=== PATIENT | female | born 1965 | race Caucasian/White ===

== ENCOUNTER 2017-07-12 14:26 | Emergency (ER) | payer OTHER ==
[~2017-07-12] VITALS: Ht 165.1 cm; Wt 87.0 kg
[~2017-07-12 14:26] MED LIST: Z.0.NO CURRENT MEDS
--- NOTE | 2017-07-12 14:39 | PD ---
HPI Chief Complaint: tachycardia Time Seen by Provider: 14:39 Travel History International Travel<30 days: No Contact w/Intl Traveler<30days: No Traveled to known affect area: No History of Present Illness HPI 51-year-old female came to the emergency room with history of sudden onset palpitation while she was cooking this afternoon. When EMS arrived patient was found to be in SVT with heart rate of about 200. She was was given 6 mg of adenosine and converted. Currently she says she just feels shook up. She had something similar 2 years ago exactly this month. No history of chest pain. Patient says she drank a glass of wine last night. She is not a smoker and does not use any illicit drugs. She's never been on medications. She does not have a primary care physician. She was slightly tachycardic in triage. Patient did not have a syncopal episode. [facility] Past Medical History Narrative Medical List of her past medical, surgical, social and family history is reviewed from the nursing note. Diminished Hearing: No Social History Alcohol Use: Yes Tobacco Use: No Substance Use: No Allergies-Medications (Allergen,Severity, Reaction): Coded Allergies: No Known Allergies (Verified , 06/17/09) Comments No known drug allergies. Reported Meds & Prescriptions Reported Meds & Active Scripts Active Lopressor (Metoprolol Tartrate) 50 Mg Tab 25 Mg PO BID Narrative Medication List of her home medications reviewed from the nursing note. Review of Systems Except as stated in HPI: all other systems reviewed are Neg Cardiovascular: Positive: Palpitations Physical Exam Narrative GENERAL: Awake, alert, anxious, no obvious distress SKIN: Focused skin assessment warm/dry. HEAD: Atraumatic. Normocephalic. EYES: Pupils equal and round. No scleral icterus. No injection or drainage. ENT: No nasal bleeding or discharge. Mucous membranes pink and moist. NECK: Trachea midline. No JVD. CARDIOVASCULAR: Regular rate and rhythm. No murmur appreciated. RESPIRATORY: No accessory muscle use. Clear to auscultation. Breath sounds equal bilaterally. GASTROINTESTINAL: Abdomen soft, non-tender, nondistended. Hepatic and splenic margins not palpable. MUSCULOSKELETAL: No obvious deformities. No clubbing. No cyanosis. No edema. NEUROLOGICAL: Awake and alert. No obvious cranial nerve deficits. Motor grossly within normal limits. Normal speech. PSYCHIATRIC: Appropriate mood and affect; insight and judgment normal. Data Data Last Documented VS Vital Signs Date Time Temp Pulse Resp B/P (MAP) Pulse Ox O2 Delivery O2 Flow Rate FiO2 07/12/17 16:06 07/12/17 15:12 104 16 99 Nasal Cannula 2.00 07/12/17 14:43 98.2 Orders Orders Electrocardiogram (07/12/17 14:50) Basic Metabolic Panel (Bmp) (07/12/17 14:50) Complete Blood Count With Diff (07/12/17 14:50) Magnesium (Mg) (07/12/17 14:50) Troponin I (07/12/17 14:50) Chest, Single Ap (07/12/17 14:50) Ecg Monitoring (07/12/17 14:50) Bilateral Bp Monitoring (07/12/17 14:50) Iv Access Insert/Monitor (07/12/17 14:50) Oximetry (07/12/17 14:50) Oxygen Administration (07/12/17 14:50) Sodium Chloride 0.9% Flush (Ns Flush) (07/12/17 15:00) Thyroid Stimulating Hormone (07/12/17 14:50) Metoprolol Tartrate (Lopressor) (07/12/17 15:00) Ed Discharge Order (07/12/17 16:00) Labs Laboratory Tests Test 07/12/17 15:00 White Blood Count 11.4 TH/MM3 Red Blood Count 4.06 MIL/MM3 Hemoglobin 13.6 GM/DL Hematocrit 40.1 % Mean Corpuscular Volume 98.9 FL Mean Corpuscular Hemoglobin 33.6 PG Mean Corpuscular Hemoglobin Concent 34.0 % Red Cell Distribution Width 12.7 % Platelet Count 276 TH/MM3 Mean Platelet Volume 8.3 FL Neutrophils (%) (Auto) 82.8 % Lymphocytes (%) (Auto) 9.8 % Monocytes (%) (Auto) 5.4 % Eosinophils (%) (Auto) 1.4 % Basophils (%) (Auto) 0.6 % Neutrophils # (Auto) 9.4 TH/MM3 Lymphocytes # (Auto) 1.1 TH/MM3 Monocytes # (Auto) 0.6 TH/MM3 Eosinophils # (Auto) 0.2 TH/MM3 Basophils # (Auto) 0.1 TH/MM3 CBC Comment DIFF FINAL Differential Comment Blood Urea Nitrogen 19 MG/DL Creatinine 0.81 MG/DL Random Glucose 91 MG/DL Calcium Level 8.3 MG/DL Magnesium Level 2.1 MG/DL Sodium Level 140 MEQ/L Potassium Level 3.9 MEQ/L Chloride Level 110 MEQ/L Carbon Dioxide Level 20.3 MEQ/L Anion Gap 10 MEQ/L Estimat Glomerular Filtration Rate 75 ML/MIN Troponin I LESS THAN 0.02 NG/ML Thyroid Stimulating Hormone 3rd Gen 1.150 uIU/ML MDM Medical Decision Making Medical Screen Exam Complete: Yes Emergency Medical Condition: Yes Medical Record Reviewed: Yes Interpretation(s) Twelve-lead EKG was reviewed by me. Normal sinus rhythm, normal axis, tachycardia, nonspecific ST-T wave changes. Heart rate of 105 bpm. Differential Diagnosis SVT, electrolyte abnormality, hyperthyroidism Narrative Course 3:30 PM awaiting for the blood test results to come back. I've given her 25 mg of by mouth Lopressor. 3:58 PM all the test results were back in within acceptable limits. I will discharge her home. Procedures EKG Prior to Arrival: Yes Diagnosis Primary Impression: SVT (supraventricular tachycardia) Referrals: Primary Care Physician 2 days Additional Instructions: Please find a primary care who can refer you to a neurological surgery teacher to get further tests done. Take the medication as per the prescription direction. Do not drink alcohol, caffeinated Beverages or Coffee, smokes cigarettes or any illicit drugs that can increase your heart rate and blood pressure. Return to the ER if the condition worsens or any other new concerns. Med/Other Pt SpecificInfo: Prescription(s) given Scripts Metoprolol Tartrate (Lopressor) 50 Mg Tab 25 MG PO BID, #60 TAB 0 Refills Prov: Brittany Owens MD 07/12/17 Disposition: 01 DISCHARGE HOME Condition: Stable Brittany Owens MD Jul 12, 2017 14:39
[2017-07-12 14:43] VITALS: BP 164/75; PULSE 107; RESP 16; TEMP 98.2; O2SAT 98
[2017-07-12] MEDS ORDERED: METOPROLOL TARTRATE 25 MG TAB PO ONE (15:00)
[2017-07-12] MEDS ORDERED: SODIUM CHLORIDE 0.9% FLUSH 10 ML FLUSH IVF PRN (15:00)
[2017-07-12 15:03] VITALS: RESP 16; O2SAT 98
[2017-07-12 15:12] VITALS: BP_SYST 141; BP_SYST 145; BP_DIAS 60; BP_DIAS 87; PULSE 104; RESP 16; O2SAT 99
[2017-07-12 15:15] LABS: AUTOMATED NEUTROPHIL # 9.4 TH/MM3 (1.8-7.7); BASOPHIL # 0.1 TH/MM3 (0-0.2); BASOPHIL % 0.6 % (0.0-2.0); EOSINOPHIL # 0.2 TH/MM3 (0-0.4); EOSINOPHIL % 1.4 % (0.0-4.0); HEMATOCRIT 40.1 % (35.0-46.0); LYMPH % 9.8 % (9.0-44.0); LYMPHOCYTE # 1.1 TH/MM3 (1.0-4.8); MEAN CELL VOLUME 98.9 FL (80.0-100.0); MEAN CORPUSCULAR HEMOGLOBIN 33.6 PG (27.0-34.0); MONO % 5.4 % (0.0-8.0); NEUT % 82.8 % (16.0-70.0); PLATELET COUNT 276 TH/MM3 (150-450); RED BLOOD COUNT 4.06 MIL/MM3 (4.00-5.30); RED CELL DISTRIBUTION WIDTH 12.7 % (11.6-17.2); WHITE BLOOD COUNT 11.4 TH/MM3 (4.0-11.0)
[2017-07-12 15:18] LABS: HEMO FLAGS DIFF FINAL
[2017-07-12 15:22] LABS: CHLORIDE 110 MEQ/L (98-107); POTASSIUM 3.9 MEQ/L (3.5-5.1); SODIUM (NA) 140 MEQ/L (136-145)
[2017-07-12 15:27] LABS: ANION GAP 10 MEQ/L (5-15); BICARBONATE 20.3 MEQ/L (21.0-32.0); BLOOD UREA NITROGEN 19 MG/DL (7-18); MAGNESIUM 2.1 MG/DL (1.5-2.5)
[2017-07-12 15:30] LABS: GLOMERULAR FILTRATION RATE 75 ML/MIN (>89)
--- NOTE | 2017-07-12 15:48 | RADRPT ---
EXAM DATE/TIME: 07/12/2017 15:20 [place] COMPARISON: No previous studies available for comparison. INDICATIONS : Rapid heart rate and left upper chest pains today MEDICAL HISTORY : None. SURGICAL HISTORY : None. ENCOUNTER: Initial ACUITY: 1 day PAIN SCORE: 2/10 LOCATION: Bilateral chest FINDINGS: A single view of the chest demonstrates the lungs to be symmetrically aerated without evidence of mas s, infiltrate or effusion. The cardiomediastinal contours are unremarkable. Osseous structures are intact. CONCLUSION: No acute cardiopulmonary process. Leonel Brown MD on July 12, 2017 at 15:47 Board Certified Radiologist. This report was verified electronically.
[2017-07-12] MEDS ORDERED: METO-309 PO (16:00)
--- NOTE | 2017-07-13 13:00 | EKG ---
Date Performed: 07/12/2017 Time Performed: 15:06:47 PTAGE: 51 years EKG: SINUS TACHYCARDIA NONSPECIFIC T-WAVE ABNORMALITY ABNORMAL RHYTHM ECG PREVIOUS TRACING : 07/27/2014 09.31 Since previous tracing, the anterolateral T-wave changes ar e slightly more prominent. DOCTOR: Orlando Jean Interpretating Date/Time 07/13/2017 12:58:14
== END 2017-07-12 16:15 | disposition home or self-care (01) ==
LOC: PHED 14:26
DX: I47.1 Supraventricular tachycardia (principal); R94.31 Abnormal electrocardiogram [ECG] [EKG]
CPT/HCPCS: 71010; 80048; 83735; 84443; 84484; 85025; 93005; 99285